=== PATIENT | female | born 1965 | race Caucasian/White ===

== ENCOUNTER 2021-09-30 10:24 | Emergency (ER) | payer BC, OTHER ==
[2021-09-30] MEDS ORDERED: Sodium Chloride 0.9% 10 ML Syringe FLUSH PRN (11:13)
[2021-09-30] MEDS ORDERED: Metoclopramide 10 MG/2 ML SDV IVPUSH ONE (11:14)
[2021-09-30] MEDS ORDERED: Ketorolac 30 MG/ML SDV IVPUSH ONE (11:14)
[2021-09-30] MEDS ORDERED: diphenhydrAMINE 50 MG/ML SDV IVPUSH ONE (11:14)
[2021-09-30] MEDS ORDERED: Sodium Chloride 0.9% 1,000 ML IV SCH (11:15)
[2021-09-30] MEDS ORDERED: Ondansetron 4 MG/2 ML SDV IVPUSH ONE (12:42)
--- NOTE | 2021-09-30 13:45 | EDM.PDOC ---
ED HPI GENERAL MEDICAL PROBLEM - General Chief Complaint: Abdominal Pain Stated Complaint: NAUSEA VOMITING Time Seen by Provider: 09/30/21 10:51 Source of Information: Reports: Patient, Provider History Limitations: Reports: No Limitations - History of Present Illness INITIAL COMMENTS - FREE TEXT/NARRATIVE: The patient presents from [facility] for a headache, nausea and vomiting. She was diagnosed withe COVID on Monday and she developed a severe headache. She has been vomiting. She has no shortness of breath or chest pain. She has a slight fever at times. She went to see Oly Brown and she did labs and a CT of her head. The CT of her head looked good along with her labs. She sent her over for meds for her headache. Onset: Gradual Duration: Day(s): Location: Reports: Head Quality: Reports: Sharp Severity: Severe Improves with: Reports: None Worsens with: Reports: None Associated Symptoms: Reports: Cough, Fever/Chills, Headaches, Nausea/Vomiting. Denies: Shortness of Breath - Related Data Allergies Allergy/AdvReac Type Severity Reaction Status Date / Time codeine Allergy Severe Change Verified 09/30/21 10:52 Mental Status acetaminophen AdvReac Severe Nausea Verified 09/30/21 10:52 [From Darvocet-N] propoxyphene AdvReac Severe Nausea Verified 09/30/21 10:52 [From Darvocet-N] tetracycline AdvReac Severe Nausea Verified 09/30/21 10:52 Past Medical History HEENT History: Reports: Impaired Vision [employer] History: Reports: Endometrial Ablation, Other (See Below) Neurological History: Reports: Migraines Psychiatric History: Reports: Depression Endocrine/Metabolic History: Reports: Hypothyroidism Social & Family History - Family History Family Medical History: No Pertinent Family History - Tobacco Use Tobacco Use Status *Q: Never Tobacco User - Caffeine Use Caffeine Use: Reports: Coffee - Recreational Drug Use Recreational Drug Use: No ED ROS GENERAL - Review of Systems Review Of Systems: See Below Constitutional: Reports: No Symptoms HEENT: Reports: No Symptoms Respiratory: Reports: No Symptoms Cardiovascular: Reports: No Symptoms Endocrine: Reports: No Symptoms GI/Abdominal: Reports: Nausea, Vomiting. Denies: Abdominal Pain : Reports: No Symptoms Musculoskeletal: Reports: No Symptoms Skin: Reports: No Symptoms Neurological: Reports: Headache ED EXAM, GI/ABD - Physical Exam Exam: See Below Exam Limited By: No Limitations General Appearance: Alert, No Apparent Distress Ears: Normal External Exam Nose: Normal Inspection Head: Atraumatic, Normocephalic Neck: Normal Inspection Respiratory/Chest: No Respiratory Distress, Lungs Clear, Normal Breath Sounds Cardiovascular: Regular Rate, Rhythm, No Edema, No Murmur GI/Abdominal Exam: Soft, Non-Tender, No Organomegaly, No Mass Back Exam: Normal Inspection Course - Vital Signs Last Recorded V/S: Last Vital Signs Temp 97.3 F 09/30/21 10:47 Pulse 65 09/30/21 10:47 Resp 18 09/30/21 10:47 BP 147/80 H 09/30/21 10:47 Pulse Ox 100 09/30/21 10:47 - Orders/Labs/Meds Orders: Active Orders 24 hr Category Date Time Status Cardiac Monitoring [RC] . DIRECTED Care 09/30/21 11:13 Active Peripheral IV Care [RC] . DIRECTED Care 09/30/21 11:14 Active Sodium Chloride 0.9% [Normal Saline] 1,000 ml Med 09/30/21 11:15 Active IV .BOLUS Sodium Chloride 0.9% [Saline Flush] Med 09/30/21 11:13 Active 10 ml FLUSH ASDIRECTED PRN ED Antiemetic Medication Reflex [OM.PC] Stat Oth 09/30/21 11:14 Ordered Peripheral IV Insertion Adult [OM.PC] Stat Oth 09/30/21 11:13 Ordered Medication Orders Sodium Chloride (Normal Saline) 1,000 mls @ 1,000 mls/hr IV .BOLUS PORSHA Last Admin: 09/30/21 11:34 Dose: 1,000 mls/hr Documented by: DEANA Sodium Chloride (Sodium Chloride 0.9% 10 Ml Syringe) 10 ml FLUSH ASDIRECTED PRN PRN Reason: Keep Vein Open Last Admin: 09/30/21 11:34 Dose: 10 ml Documented by: DEANA Meds: Medications Generic Name Dose Route Start Last Admin Trade Name Freq PRN Reason Stop Dose Admin Sodium Chloride 1,000 mls @ 1,000 mls/hr 09/30/21 11:15 09/30/21 11:34 Normal Saline IV 1,000 mls/hr .BOLUS PORSHA Administration Sodium Chloride 10 ml 09/30/21 11:13 09/30/21 11:34 Sodium Chloride 0.9% 10 Ml Syringe FLUSH 10 ml ASDIRECTED PRN Administration Keep Vein Open Discontinued Medications Generic Name Dose Route Start Last Admin Trade Name Vick PRN Reason Stop Dose Admin Diphenhydramine HCl 50 mg 09/30/21 11:14 09/30/21 11:34 Diphenhydramine 50 Mg/Ml Sdv IVPUSH 09/30/21 11:15 50 mg ONETIME ONE Administration Ketorolac Tromethamine 30 mg 09/30/21 11:14 09/30/21 11:34 Ketorolac 30 Mg/Ml Sdv IVPUSH 09/30/21 11:15 30 mg ONETIME ONE Administration Metoclopramide HCl 10 mg 09/30/21 11:14 09/30/21 11:34 Metoclopramide 10 Mg/2 Ml Sdv IVPUSH 09/30/21 11:15 10 mg ONETIME ONE Administration Ondansetron HCl 4 mg 09/30/21 12:42 09/30/21 12:50 Ondansetron 4 Mg/2 Ml Sdv IVPUSH 09/30/21 12:43 4 mg ONETIME ONE Administration - Re-Assessments/Exams Free Text/Narrative Re-Assessment/Exam: 09/30/21 13:43 I ordered an IV NS 1L bolus, reglan 10mg IV, toradol 30mg IV, and benadryl 50mg IV. Her headache is better but she is still nauseated. I ordered zofran and she feels better. I will discharge her home. She has zofran at home. Departure - Departure Time of Disposition: 13:50 Disposition: Home, Self-Care 01 Condition: Good Clinical Impression: COVID-19 Vomiting Qualifiers: Vomiting type: unspecified Vomiting Intractability: unspecified Nausea presence: with nausea Qualified Code(s): R11.2 - Nausea with vomiting, unspecified Headache Qualifiers: Headache type: unspecified Headache chronicity pattern: acute headache Intractability: not intractable Qualified Code(s): R51.9 - Headache, unspecified - Discharge Information *PRESCRIPTION DRUG MONITORING PROGRAM REVIEWED*: Not Applicable *COPY OF PRESCRIPTION DRUG MONITORING REPORT IN PATIENT MAX: Not Applicable Referrals: Oly Brown BUT[facility] SAWYER [Primary Care Provider] - 1 Week Additional Instructions: Drink plenty of fluids. Take tylenol or motrin as needed for pain or fever. Take zofran every 6 hours as needed for nausea and vomiting. Follow up with your doctor. Please return if you are worse. Sepsis Event Note (ED) - Focused Exam Vital Signs: Vital Signs Temp Pulse Resp BP Pulse Ox 09/30/21 10:47 97.3 F 65 18 147/80 H 100 - My Orders Last 24 Hours: My Active Orders 09/30/21 11:13 Cardiac Monitoring [RC] . DIRECTED Sodium Chloride 0.9% [Saline Flush] 10 ml FLUSH ASDIRECTED PRN Peripheral IV Insertion Adult [OM.PC] Stat 09/30/21 11:14 Peripheral IV Care [RC] . DIRECTED ED Antiemetic Medication Reflex [OM.PC] Stat 09/30/21 11:15 Sodium Chloride 0.9% [Normal Saline] 1,000 ml IV .BOLUS - Assessment/Plan Last 24 Hours: My Active Orders 09/30/21 11:13 Cardiac Monitoring [RC] . DIRECTED Sodium Chloride 0.9% [Saline Flush] 10 ml FLUSH ASDIRECTED PRN Peripheral IV Insertion Adult [OM.PC] Stat 09/30/21 11:14 Peripheral IV Care [RC] . DIRECTED ED Antiemetic Medication Reflex [OM.PC] Stat 09/30/21 11:15 Sodium Chloride 0.9% [Normal Saline] 1,000 ml IV .BOLUS
== END 2021-09-30 14:02 | disposition home or self-care (01) ==
LOC: JD.ED 10:24
DX: U07.1 COVID-19 (principal); R11.2 Nausea with vomiting, unspecified; Z88.5 Allergy status to narcotic agent; Z88.1 Allergy status to other antibiotic agents; Z88.8 Allergy status to other drugs, medicaments and biological substances
CPT/HCPCS: 96374; 96375; 99283; J1200; J1885; J2405; J2765; J7030